=== PATIENT | female | born 1960 | race Caucasian/White ===

== ENCOUNTER 2017-04-16 04:43 | Emergency (ER) | payer OTHER ==
[~2017-04-16] VITALS: Ht 152.4 cm; Wt 66.1 kg
[~2017-04-16 04:43] MED LIST: ALLEGRA-D 121 TABLET PO; ALLEGRA60 MG PO; COLACE100 MG PO; DAILY VITE1 EAC1 PO; FLONASE16 G1 BOTH NARES; LEVOTHYROXINE50 MCG PO; NEFAZODONE HCL100 MG PO; PHENERGAN-CODE120 ML PO; TESSALON200 MG PO; TOPAMAX100 MG PO
[2017-04-16 05:32] LABS: HEMATOCRIT 39.7 % (36.0-46.0); MCH 32.5 PG (29.0-34.0); MCHC 34.3 G/DL (30.0-36.0); MEAN PLAT.VOLUME 10.1 uM^3 (9.5-12.4); PLATELET COUNT 241 K/uL (156-360); RBC DIS.WIDTH-CV 12.7 % (11.8-14.6); RED BLOOD COUNT 4.18 M/uL (3.80-5.20); WHITE BLOOD COUNT 10.1 K/uL (4.1-10.2)
[2017-04-16 05:41] LABS: CHLORIDE 113 mEq/L (99-109); POTASSIUM 3.9 mEq/L (3.7-5.4); SODIUM 143 mEq/L (136-147)
[2017-04-16 05:43] LABS: GLUCOSE 98 mg/dL (70-99)
[2017-04-16 05:47] LABS: GFR ESTIMATE (CALCULATED) > 59 mL/min/
[2017-04-16 05:48] LABS: UREA NITROGEN (BUN) 12 mg/dL (9-23)
[2017-04-16 05:52] LABS: TROP-I INTERPRETATION NEGATIVE; TROPONIN-I < 0.01 ng/mL (0.0-0.30)
[2017-04-16] MEDS ORDERED: FIORICET 50-301 EACH PO (06:18)
[2017-04-16 06:26] VITALS: BP 138/82
== END 2017-04-16 06:27 | disposition home or self-care (01) ==
LOC: EXP 04:43 → EME 04:43 → EXP 06:27
PROVIDERS: Emergency Medicine
DX: R42 Dizziness and giddiness (principal); F17.200 Nicotine dependence, unspecified, uncomplicated
CPT/HCPCS: 70450; 80048; 84484; 85027; 99281; 99284